=== PATIENT | female | born 2000 | race American Indian/Alaskan Native ===

== ENCOUNTER 2019-04-27 13:46 | Emergency (ER) | payer OTHER ==
--- NOTE | 2019-04-27 14:32 | Emergency Department Report ---
Blank Doc - Documentation Documentation: 18 y o female present to right upper abd pain x 2 days ago when she woke up denies f/c/dysuria labs, ua, abd U/S acc jeff
[2019-04-27 14:53] LABS: Basophils % (Auto) 0.4 % (0.0-1.8); Eosinophils # (Auto) 0.1 K/mm3 (0.0-0.4); Eosinophils % (Auto) 0.6 % (0.0-4.3); Hematocrit 34.9 % (30.3-42.9); Hemoglobin 11.1 gm/dl (10.1-14.3); Lymphocytes # (Auto) 0.9 K/mm3 (1.2-5.4); Lymphocytes % (Auto) 10.9 % (13.4-35.0); Mean Corpuscular HGB Conc 32 % (30-34); Mean Corpuscular Volume 71 fl (79-97); Monocytes # (Auto) 0.5 K/mm3 (0.0-0.8); Monocytes % (Auto) 5.7 % (0.0-7.3); Platelet Count 253 K/mm3 (140-440); Red Cell Distribution Width 14.5 % (13.2-15.2)
[2019-04-27 15:09] LABS: BUN/Creatinine Ratio 25; Blood Urea Nitrogen 10 mg/dL (7-17); Calcium 9.3 mg/dL (8.4-10.2); Hemolysis Index 6
[2019-04-27] MEDS ORDERED: NACL 0.9% 1000 ML 1,000 ML IV ONE (17:09)
--- NOTE | 2019-04-27 17:14 | Emergency Department Report ---
ED Abdominal Pain HPI - General Chief Complaint: Abdominal Pain Stated Complaint: SIDE PAIN Time Seen by Provider: 04/27/19 14:28 Source: patient Mode of arrival: Ambulatory Limitations: No Limitations - History of Present Illness Initial Comments: Pt is a 18 yo female who presents to the ED with c/o RUQ abd pain that began 2 days ago. She describes it as intermittent sharp pain. She denies it being worse after eating. she denies any nausea. she states she had one episode of emesis yesterday after taking a midol on an empty stomach. She states she has had some constipation, she states she had an episode of diarrhea yesterday. She is currently on her menstrual cycle. She states she typically has abdominal cramping on her cycle but it is usually in the suprapubic area. She denies any fever or urinary sx. PMHx of asthma. no abdominal surgeries. - Related Data Previous Rx's Medication Instructions Recorded Last Taken Type Acetaminophen/Codeine [Tylenol 1 tab PO Q6H PRN #10 tab 04/27/19 Unknown Rx /Codeine # 3 tab] Ondansetron [Zofran Odt] 4 mg PO Q8HR PRN #10 tab.rapdis 04/27/19 Unknown Rx Allergies Allergy/AdvReac Type Severity Reaction Status Date / Time No Known Allergies Allergy Unverified 04/27/19 13:48 ED Review of Systems ROS: Stated complaint: SIDE PAIN Other details as noted in HPI Comment: All other systems reviewed and negative ED Past Medical Hx - Past Medical History Previous Medical History?: No - Surgical History Past Surgical History?: No - Social History Smoking Status: Never Smoker Substance Use Type: None - Medications Home Medications: Home Medications Medication Instructions Recorded Confirmed Last Taken Type Acetaminophen/Codeine [Tylenol 1 tab PO Q6H PRN #10 tab 04/27/19 Unknown Rx /Codeine # 3 tab] Ondansetron [Zofran Odt] 4 mg PO Q8HR PRN #10 tab.rapdis 04/27/19 Unknown Rx ED Physical Exam - General Limitations: No Limitations General appearance: alert, in no apparent distress - Head Head exam: Present: atraumatic, normocephalic - Eye Eye exam: Present: normal appearance - ENT ENT exam: Present: mucous membranes dry (mild) - Respiratory Respiratory exam: Present: normal lung sounds bilaterally. Absent: respiratory distress, wheezes, rales, rhonchi, stridor, chest wall tenderness, accessory muscle use, decreased breath sounds, prolonged expiratory - Cardiovascular Cardiovascular Exam: Present: normal rhythm, tachycardia (mild), normal heart sounds. Absent: systolic murmur, diastolic murmur, rubs, gallop - GI/Abdominal GI/Abdominal exam: Present: soft, tenderness (RUQ), normal bowel sounds. Absent: distended, guarding, rebound, rigid - Back Exam Back exam: Absent: CVA tenderness (R), CVA tenderness (L) - Neurological Exam Neurological exam: Present: alert, oriented X3 - Psychiatric Psychiatric exam: Present: normal affect, normal mood - Skin Skin exam: Present: warm, dry, intact ED Course Vital Signs 04/27/19 04/27/19 14:29 21:47 Temperature 98.1 F 98.7 F Pulse Rate 99 H 89 Respiratory 18 18 Rate Blood Pressure 113/77 Blood Pressure 117/69 [Left] O2 Sat by Pulse 98 100 Oximetry - Consultations Consultation #1: 04/27/19 21:[address] Feliz, general surgery about patient history and results of imaging, recommended to refer to primary care and have them arrange an outpatient biopsy of the liver. ED Medical Decision Making - Lab Data Result diagrams: 04/27/19 14:40 04/27/19 14:40 Lab Results 04/27/19 04/27/19 04/27/19 Range/Units 14:40 14:40 14:40 WBC 8.4 (4.5-11.0) K/mm3 RBC 4.90 (3.65-5.03) M/mm3 Hgb 11.1 (10.1-14.3) gm/dl Hct 34.9 (30.3-42.9) % MCV 71 L (79-97) fl MCH 23 L (28-32) pg MCHC 32 (30-34) % RDW 14.5 (13.2-15.2) % Plt Count 253 (140-440) K/mm3 Lymph % (Auto) 10.9 L (13.4-35.0) % Carson % (Auto) 5.7 (0.0-7.3) % Eos % (Auto) 0.6 (0.0-4.3) % Baso % (Auto) 0.4 (0.0-1.8) % Lymph # 0.9 L (1.2-5.4) K/mm3 Carson # 0.5 (0.0-0.8) K/mm3 Eos # 0.1 (0.0-0.4) K/mm3 Baso # 0.0 (0.0-0.1) K/mm3 Seg Neutrophils % 82.4 H (40.0-70.0) % Seg Neutrophils # 6.9 (1.8-7.7) K/mm3 Sodium 138 (137-145) mmol/L Potassium 3.5 L (3.6-5.0) mmol/L Chloride 102.4 (98-107) mmol/L Carbon Dioxide 22 (22-30) mmol/L Anion Gap 17 mmol/L BUN 10 (7-17) mg/dL Creatinine 0.4 L (0.7-1.2) mg/dL Estimated GFR > 60 ml/min BUN/Creatinine Ratio 25 % Glucose 88 (65-100) mg/dL Calcium 9.3 (8.4-10.2) mg/dL HCG, Qual Negative (Negative) Vital Signs 04/27/19 04/27/19 14:29 21:47 Temperature 98.1 F 98.7 F Pulse Rate 99 H 89 Respiratory 18 18 Rate Blood Pressure 113/77 Blood Pressure 117/69 [Left] O2 Sat by Pulse 98 100 Oximetry - Radiology Data Radiology results: report reviewed PROCEDURE: US ABDOMEN LIMITED TECHNIQUE: Ultrasound abdomen HISTORY: RUQ pain COMPARISONS: FINDINGS: There is a hypoechoic focus within the right lobe of the liver measuring 4.5 x 3.5 x 3.5 cm. Within the gallbladder body there is an ovoid echogenic structure demonstrating internal vascularity measuring 2.0 x 0.9 x 0.8 cm concerning for neoplasm. No shadowing echogenic foci observed. Gallbladder wall does not appear thickened Common bile duct is 0.12 cm Right kidney is 10.1 x 4.9 x 6.5 cm IMPRESSION: 2 cm echogenic focus within the lumen of the gallbladder concerning for neoplasm 4.5 cm hypoechoic focus within the liver which appears solid, also concerning for neoplastic or metastatic focus. CT of the abdomen and pelvis is recommended for further evaluation with contrast if not contraindicated for this patient. This document is electronically signed by Wero Glez MD., April 27 2019 08:02:31 PM ET PROCEDURE: CT abdomen and pelvis with contrast. TECHNIQUE: Computerized axial tomography of the abdomen and pelvis was performed after the IV injection of iodinated nonionic contrast. CT DOSE LENGTH PRODUCT: 576.6 mGycm HISTORY: Right upper quadrant abdominal pain. COMPARISONS: None. FINDINGS: The lung bases are clear. There are no pleural effusions. The heart size is normal. There is a moderately large focal mass within the liver. This is located within the anterior segment of the right lobe, adjacent to the gallbladder fossa. The mass measures 4.3 cm in diameter. This mass shows fairly uniform enhancement on the arterial phase images with the exception of a central focus of low attenuation. This small area of low-attenuation is consistent with a central "scar". On the delayed images the mass is nearly isodense to the liver, with just very subtle hypoattenuation making it still visible. The appearance of the mass is typical for focal nodular hyperplasia. Other etiologies are considered unlikely. The gallbladder is present. There is no biliary dilatation. The pancreas and spleen appear normal. The adrenal glands are not enlarged. Both kidneys appear normal in size and configuration. The abdominal aorta has a normal caliber. There is no retroperitoneal adenopathy. The unopacified gastrointestinal tract is unremarkable. The appendix is not visible. The bladder is nearly empty. The uterus and adnexal regions appear normal. There is a tiny amount of free fluid in the cul-de-sac. The regional skeleton appears intact. IMPRESSION: Focal nodular hyperplasia involving the right lobe of the liver. Otherwise normal study. This document is electronically signed by Alexandru Sosa MD., April 27 2019 09:50:36 PM ET - Medical Decision Making Pt is a 18 yo female who presents to the ED with c/o RUQ abd pain that began 2 days ago. She describes it as intermittent sharp pain. She denies it being worse after eating. she denies any nausea. she states she had one episode of emesis yesterday after taking a midol on an empty stomach. She states she has had some constipation, she states she had an episode of diarrhea yesterday. She is currently on her menstrual cycle. She states she typically has abdominal cramping on her cycle but it is usually in the suprapubic area. She denies any fever or urinary sx. PMHx of asthma. no abdominal surgeries. on exam pt has RUQ TTP, no guarding no rebound, normal bowel sounds. vitals are normal. Labs WNL. UA from urgent care with ketones, pt given 1L of fluids and something for pain. RUQ US shows 2 cm echogenic focus within the lumen of the gallbladder concerning for neoplasm. 4.5 cm hypoechoic focus within the liver which appears solid, also concerning for neoplastic or metastatic focus. CT of the abdomen and pelvis is recommended for further evaluation with contrast if not contraindicated for this patient. CT abd pelvis with IV contrast: Focal nodular hyperplasia involving the right lobe of the liver. Otherwise normal study. Spoke to Dr. Ritter who recommended consulting Dr. Feliz, general surgery. Dr. Feliz states that pt would need to follow up with a PCP and have an outpatient biopsy arranged by her PCP. pt given CT report. Please follow up with a primary care doctor in the next 2-3 days. take medication as prescribed as needed. do not drive or operate heavy machinery while taking pain medication. may use tylenol or motrin for moderate discomfort. return to the emergency room for any new or worsening symptoms. continue drinking plenty of fluids. UA from urgent care color= melva clarity= hazy pH= 6.0 specific gravity= 1.030 urobilinogen= negative blood = 3+ glucose= negative ketones= 3+ WBC= negative bilrubin= negative nitrite= negative protein= 2+ Critical care attestation.: If time is entered above; I have spent that time in minutes in the direct care of this critically ill patient, excluding procedure time. ED Disposition Clinical Impression: RUQ pain, Liver mass, right lobe Disposition: DC-01 TO HOME OR SELFCARE Is pt being admited?: No Does the pt Need Aspirin: No Condition: Stable Instructions: Abdominal Pain (ED) Additional Instructions: Please follow up with a primary care doctor in the next 2-3 days. take medication as prescribed as needed. do not drive or operate heavy machinery while taking pain medication. may use tylenol or motrin for moderate discomfort. return to the emergency room for any new or worsening symptoms. Prescriptions: Acetaminophen/Codeine [Tylenol /Codeine # 3 tab] 1 tab PO Q6H PRN #10 tab PRN Reason: Pain , Severe (7-10) Ondansetron [Zofran Odt] 4 mg PO Q8HR PRN #10 tab.rapdis PRN Reason: Nausea Referrals: REG HASSAN MD [Primary Care Provider] - 2-3 Days OLVIN TERESA MD [Staff Physician] - 2-3 Days Forms: Work/School Release Form(ED) Time of Disposition: 21:23 Print Language: [place]
--- NOTE | 2019-04-27 19:04 | Ultrasound Report ---
PROCEDURE: US ABDOMEN LIMITED TECHNIQUE: Ultrasound abdomen HISTORY: RUQ pain COMPARISONS: FINDINGS: There is a hypoechoic focus within the right lobe of the liver measuring 4.5 x 3.5 x 3.5 cm. Within t he gallbladder body there is an ovoid echogenic structure demonstrating internal vascularity measurin g 2.0 x 0.9 x 0.8 cm concerning for neoplasm. No shadowing echogenic foci observed. Gallbladder wall does not appear thickened Common bile duct is 0.12 cm Right kidney is 10.1 x 4.9 x 6.5 cm IMPRESSION: 2 cm echogenic focus within the lumen of the gallbladder concerning for neoplasm 4.5 cm hypoechoic focus within the liver which appears solid, also concerning for neoplastic or metas tatic focus. CT of the abdomen and pelvis is recommended for further evaluation with contrast if not contraindicat ed for this patient. This document is electronically signed by Wero Glez MD., April 27 2019 08:02:31 PM ET
--- NOTE | 2019-04-27 20:52 | Cat Scan Report ---
PROCEDURE: CT abdomen and pelvis with contrast. TECHNIQUE: Computerized axial tomography of the abdomen and pelvis was performed after the IV inject ion of iodinated nonionic contrast. CT DOSE LENGTH PRODUCT: 576.6 mGycm HISTORY: Right upper quadrant abdominal pain. COMPARISONS: None. FINDINGS: The lung bases are clear. There are no pleural effusions. The heart size is normal. There is a modera tely large focal mass within the liver. This is located within the anterior segment of the right lobe , adjacent to the gallbladder fossa. The mass measures 4.3 cm in diameter. This mass shows fairly uni form enhancement on the arterial phase images with the exception of a central focus of low attenuatio n. This small area of low-attenuation is consistent with a central "scar". On the delayed images the mass is nearly isodense to the liver, with just very subtle hypoattenuation making it still visible. The appearance of the mass is typical for focal nodular hyperplasia. Other etiologies are considered unlikely. The gallbladder is present. There is no biliary dilatation. The pancreas and spleen appear normal. The adrenal glands are not enlarged. Both kidneys appear normal in size and configuration. Th e abdominal aorta has a normal caliber. There is no retroperitoneal adenopathy. The unopacified gastr ointestinal tract is unremarkable. The appendix is not visible. The bladder is nearly empty. The uter us and adnexal regions appear normal. There is a tiny amount of free fluid in the cul-de-sac. The reg ional skeleton appears intact. IMPRESSION: Focal nodular hyperplasia involving the right lobe of the liver. Otherwise normal study. This document is electronically signed by Alexandru Sosa MD., April 27 2019 09:50:36 PM ET
[2019-04-27 21:48] VITALS: BP 117/69
[2019-04-27] MEDS ORDERED: TORADOL IV ONE (21:58)
== END 2019-04-27 22:23 | disposition home or self-care (01) ==
LOC: ED 13:46
DX: R16.0 Hepatomegaly, not elsewhere classified (principal); R10.11 Right upper quadrant pain
CPT/HCPCS: 36415; 74177; 76705; 80048; 84703; 85025; 96361; 96374; 99284; J1885; J7030; Q9967

== ENCOUNTER 2019-04-30 13:49 | Outpatient (CLI) | payer OTHER ==
[2019-04-30 14:31] LABS: Bacteria,Urine 1+ /HPF (Negative); Bilirubin,Urine NEG (Negative); Blood,Urine NEG (Negative); Color,Urine Yellow (Yellow); Mucus,Urine FEW /HPF; Protein,Urine <15 mg/dL mg/dL (Negative); Urobilinogen,Urine < 2.0 mg/dL (<2.0)
== END 2019-04-30 13:50 | disposition home or self-care (01) ==
LOC: LAB 13:49
PROVIDERS: ATTEND Internal Medicine
DX: N39.0 Urinary tract infection, site not specified (principal)
CPT/HCPCS: 81001; 87086; 87591

== ENCOUNTER 2019-08-27 15:13 | Outpatient (CLI) | payer OTHER ==
[2019-08-27 15:34] LABS: HCG Qualitative,Urine Negative (Negative)
[2019-08-27 15:39] LABS: Bacteria,Urine 1+ /HPF (Negative); Bilirubin,Urine NEG (Negative); Blood,Urine NEG (Negative); Color,Urine Straw (Yellow); Protein,Urine <15 mg/dL mg/dL (Negative); Urobilinogen,Urine < 2.0 mg/dL (<2.0); WBC,Urine < 1.0 /HPF (0.0-6.0)
== END 2019-08-27 15:14 | disposition home or self-care (01) ==
LOC: LAB 15:13
PROVIDERS: ATTEND Internal Medicine
DX: N39.0 Urinary tract infection, site not specified (principal); A56.2 Chlamydial infection of genitourinary tract, unspecified
CPT/HCPCS: 81001; 81025; 87591

== ENCOUNTER 2019-11-06 09:47 | Outpatient (CLI) | payer OTHER ==
--- NOTE | 2019-11-06 11:46 | Magnetic Resonance Report ---
MR ABDOMEN WITH AND WITHOUT CONTRAST HISTORY: Other specified diseases of liver, liver mass, follow-up local nodular hyperplasia TECHNIQUE: Multisequence, multiplanar MRI before and after 10 cc of MultiHance intravenously. COMPARISON: Ultrasound abdomen and CT abdomen pelvis dated 04/27/2019 FINDINGS: The liver is normal size, contour and signal. The previously described focal hypervascular mass consi stent with focal nodular hyperplasia in the right hepatic lobe is unchanged measuring 3.[address] No additional liver lesions are identified. The hepatic vasculature is patent. Normal biliary system, pancreas, spleen, kidneys, adrenal glands, aorta and visualized bowel loops. No evidence for ascites, adenopathy or acute inflammation. Normal bony signal in the spine. IMPRESSION: No change in the right hepatic lobe focal nodular hyperplasia. Signer Name: Earnest Camp Jr, MD Signed: 11/06/2019 11:42 AM Workstation Name: [id number]
== END 2019-11-06 09:48 | disposition home or self-care (01) ==
LOC: MRI 09:47
PROVIDERS: ATTEND Internal Medicine
DX: K76.89 Other specified diseases of liver (principal)
CPT/HCPCS: 74183; A9577